=== PATIENT | male | born 1985 | race Caucasian/White ===

== ENCOUNTER 2018-06-09 17:18 | Emergency (ER) | payer BC, SELFPAY ==
[2018-06-09 17:21] VITALS: BP 156/108; PULSE 81; RESP 16; TEMP 36.7; O2SAT 98
--- NOTE | 2018-06-09 17:31 | ED.GENADUL ---
Disposition Clinical Impression: Left otitis externa Condition: Good Instructions: Otitis Externa (ED) Additional Instructions: We will ask our care management team to make you a follow-up appointment in otolaryngology clinic. Please take Ciprodex twice daily in the left ear. Take antibiotics as prescribed. Return for worsening discomfort or any other acute concerns. May use Tylenol and/or ibuprofen as needed for pain Prescriptions: Amoxicillin/Potassium Clav [Augmentin 875-125 Tablet] 1 each PO BID 10 Days #20 tablet Ciprofloxacin HCl/Dexameth [Ciprodex Otic Suspension] 7.5 ml OT BID 10 Days #1 drops.susp Medical Decision Making - Medical Decision Making 32-year-old male with 3+ weeks of left ear pain refractive to current course of Ciprodex. He does state he is taking it once daily. He is not diabetic and has no chronic medical issues per On exam it is most consistent with left otitis externa, cannot exclude otitis media. We will have him to continue Ciprodex twice daily and add Augmentin by mouth. We will ask care management to arrange for an outpatient follow-up in ENT clinic approximately 7-10 days from now for chronic left otitis externa History of Present Illness - General Chief complaint: EarProblem Stated complaint: EAR INFECTION Time Seen by Provider: 06/09/18 17:24 Source: patient, RN notes reviewed Mode of arrival: ambulatory Limitations: no limitations - History of Present Illness Initial comments: Ear pain: 32-year-old male states he has had left ear pain since mid April. He was seen in the emergency department on May 14 and provided with Ciprodex. He has since been seen in primary care clinic for which he has been taking neomycin drops. He states he now has persistent 7-10 days of left achy constant ear pain that is nonradiating. No exacerbating or ameliorating factors. He has not had a fever, sore throat, loose or damaged teeth. No injury. No change to hearing. - Related Data PARoxetine [Paxil] 10 mg PO DAILY 03/23/13 Amoxicillin/Potassium Clav [Augmentin 875-125 Tablet] 1 each PO BID 10 Days #20 tablet 06/09/18 Ciprofloxacin HCl/Dexameth [Ciprodex Otic Suspension] 7.5 ml OT BID 10 Days #1 drops.susp 06/09/18 Allergies Allergy/AdvReac Type Severity Reaction Status Date / Time No Known Allergies Allergy Unverified 06/09/18 17:25 Review of Systems Other: For systems reviewed, otherwise negative Past Medical History - Past Medical History Medical history: hypertension Surgical history: no surgical history General Exam - General Limitations: no limitations General appearance: alert, in no apparent distress - Head Head exam: Present: atraumatic, normocephalic - Eye Eye exam: Present: PERRL - ENT ENT exam: Present: other (Right tympanic membrane unremarkable. The left external ear canal is narrowed cobblestoned with white exudate. Cannot appreciate the tympanic membrane.) - Neck Neck exam: Present: normal inspection, full ROM. Absent: meningismus - Respiratory Respiratory exam: Absent: respiratory distress - Neurological Exam Neurological exam: Present: alert, oriented X3 - Psychiatric Psychiatric exam: Present: normal affect, normal mood - Skin Skin exam: Present: warm, dry, intact Course Vital Signs - 24 hr 06/09/18 17:21 Temperature 36.7 C Pulse 81 Respiratory 16 Rate Blood Pressure 156/108 Pulse Oximetry 98
[2018-06-09 17:50] VITALS: TEMP 36.7
--- NOTE | 2018-06-10 09:03 | CMPROGNOTE_ITS ---
Care Management Progress Note 06/10-Dr. Kramer requested assistance with PCP (Willard) f/u in one week for left chronic swimmer's ear. Referral faxed to [facility].
== END 2018-06-09 17:52 ==
PROVIDERS: Emergency Provider Emergency Medicine; PCP Nurse Practitioner
DX: H60.392 Other infective otitis externa, left ear (principal); I10 Essential (primary) hypertension
CPT/HCPCS: 99283

== ENCOUNTER 2019-05-01 11:13 | Emergency (ER) | payer BC, SELFPAY ==
[2019-05-01 11:19] VITALS: BP 167/95; PULSE 85; RESP 18; TEMP 37; O2SAT 98
--- NOTE | 2019-05-01 12:04 | W.ED.GENAD ---
Discharge Plan Disposition Patient Disposition: HOME Condition: Stable Discharge Details Chief Complaint: Abd Prob Clinical Impression: Anxiety, Abdominal pain Primary Care Provider: Isabel Lamar ED Provider: Pushpa Ryan Home Meds and New Rx's Prescriptions: Continued paroxetine HCl 20 MG tablet 10 mg PO DAILY RF: 0 Discharge Instructions Instructions: Abdominal Pain (ED), Anxiety (ED) Additional Instructions: Encourage hydration. Treat symptoms with Tylenol and ibuprofen, heat. Please continue with your fluoxetine as previously prescribed. Please follow-up with your primary care next week to discuss your persistent anxiety and abdominal pain. If you develop fever/chills, vomiting, inability to stay hydrated, increased pain or other new/worsening symptoms please seek care urgently once again Referrals: Isabel Lamar [Primary Care Provider] - Discharge Data Discharge Date/Time-TO BE ENTERED AT DEPARTURE: 05/01/19 12:25 Medical Decision Making Patient is a 33-year-old male, with history of anxiety, chief complaint of intermittent abdominal pain for the past 7 months. He reports that the pain comes on around times of stress or anxiety. He reports the pain is increased over the past week and has been more frequent. States that this does not decrease his appetite. Is noted that his bowel movements have been soft but still he is only having one per day. Denies any blood in stool. States that his dog is being put down today and with this his pain seems to have increased. On exam, he has a benign abdomen. No pain is elicited with exam. He is afebrile with stable vital signs. Patient does appear anxious. He does feel his anxiety driven. He cannot see any evidence of acute abdomen at this time is been intermittent for the past several months, only anxiety driven, I do not feel that this is an emergent issue may be followed up with the primary care. Patient does feel very reassured with this and feels that this in itself will help with this discomfort. We did discuss anxiolytic techniques further. He has been taking his paroxetine as prescribed and continue to do so. Encourage hydration. Advised that he may treat his symptoms and discussed [id number] home remedies to help with this. All his questions and concerns were addressed and he is in agreement this plan HPI General Mode of arrival: ambulatory. Date/Time Provider Initiated Documentation: 05/01/19 12:03. Limitations to Documentation: no limitations. Information obtained by: patient and RN notes reviewed. History of Present Illness 33 year old M presents to the emergency department with the chief complaint of abdominal pain, described as mild, Quality is described as aching (cramping), and is localized to the abdomen. Patient reports no radiation. Patient started experiencing this month(s) (7) and it has been intermittent. No relieving factors improve symptom(s), Other factors that worsen symptoms (stress) . Patient notes no other symptoms.. Patient did receive the following treatments prior to arrival, none Related Data Home Medications Medication Instructions Recorded Confirmed paroxetine HCl 10 mg PO DAILY 03/23/13 05/01/19 Allergies Allergy/AdvReac Type Severity Reaction Status Date / Time No Known Allergies Allergy Unverified 06/09/18 17:25 General Stated Complaint: Abd Prob SAULO: 3 Review of Systems Constitutional Reports as per HPI, Denies chills, Denies fatigue, Denies fever(s) and Denies headache(s) ENT Denies headache(s) Cardiovascular Reports as per HPI, Denies chest pain and Denies dyspnea Respiratory Reports as per HPI, Denies cough and Denies dyspnea Gastrointestinal Reports as per HPI Genitourinary Denies system reviewed and no additional complaints, except as docu (patient denies any change in urinary habits, no testicular pain) Musculoskeletal Reports as per HPI and Denies back pain Integumentary/Breasts Reports as per HPI and Denies rash Neurologic Reports as per HPI and Denies headache(s) Endocrine Denies fatigue [facility] Social History Smoking/Tobacco Use Status: Former Tobacco Use Alcohol Intake: current Alcohol Intake frequency: holidays/special occasions only Drug use: Daily Substance use type: marijuana Do you feel safe at home: Yes Do you feel safe in your relationship?: Yes Exam Const General: cooperative, healthy appearing, comfortable, no acute distress and well developed Nutritional Appearance: average body habitus and well nourished Orientation: alert and awake HENWV Head: normal to inspection Mouth: moist mucous membranes Resp Effort & Inspection: normal respiratory effort, able to speak in complete sentences and no respiratory distress Auscultation: clear to auscultation bilaterally, no rales, no rhonchi and no wheezes Cardio Rate: regular rate Rhythm: regular rhythm Heart Sounds: S1 normal and S2 normal GI Inspection: normal to inspection, no edema and no visible herniation Palpation: soft, no hepatosplenomegaly, no aortic enlargement, not firm, no guarding, no pulsatile masses, not rigid and nontender Percussion: normal to percussion Auscultation: normal bowel sounds Back/Spine/Pelvis Back: no CVA tenderness Skin General skin exam: no rashes or lesions noted Trauma: no lacerations or abrasions Neuro General: alert and awake Cognition: normal cognition Speech: speech normal Gait: normal gait Psych Appearance: grossly normal and well kempt Mental Status: mental status grossly normal Speech and Movement: speech and movement normal Course Vital Signs Temperature 37 C 05/01/19 11:19 Pulse 85 05/01/19 11:19 Respiratory Rate 18 05/01/19 11:19 Blood Pressure 167/95 H 05/01/19 11:19 Pulse Oximetry 98 05/01/19 11:19 Temperature 37 C 05/01/19 11:19 Temperature Source Temporal Artery Scan 05/01/19 11:19 Pulse 85 05/01/19 11:19 Respiratory Rate 18 05/01/19 11:19 Respiratory Effort Non-Labored 05/01/19 11:19 Blood Pressure 167/95 H 05/01/19 11:19 Blood Pressure Position Sitting 05/01/19 11:19 Pulse Oximetry 98 05/01/19 11:19 Oxygen Delivery Method Room Air 05/01/19 11:19 Oxygen Flow Rate 0 05/01/19 11:19 Pain Level 3 05/01/19 11:19
--- NOTE | 2019-05-01 12:17 | ED.GENADUL_ITS ---
Discharge Plan Disposition Patient Disposition: HOME Condition: Stable Discharge Details Chief Complaint: Abd Prob Clinical Impression: Anxiety, Abdominal pain Primary Care Provider: Isabel Lamar ED Provider: Pushpa Ryan Home Meds and New Rx's Prescriptions: Continued paroxetine HCl 20 MG tablet 10 mg PO DAILY RF: 0 Discharge Instructions Instructions: Abdominal Pain (ED), Anxiety (ED) Additional Instructions: Encourage hydration. Treat symptoms with Tylenol and ibuprofen, heat. Please continue with your fluoxetine as previously prescribed. Please follow-up with your primary care next week to discuss your persistent anxiety and abdominal pain. If you develop fever/chills, vomiting, inability to stay hydrated, increased pain or other new/worsening symptoms please seek care urgently once again Referrals: Isabel Lamar [Primary Care Provider] - Discharge Data Discharge Date/Time-TO BE ENTERED AT DEPARTURE: 05/01/19 12:25 Medical Decision Making Patient is a 33-year-old male, with history of anxiety, chief complaint of intermittent abdominal pain for the past 7 months. He reports that the pain comes on around times of stress or anxiety. He reports the pain is increased over the past week and has been more frequent. States that this does not decrease his appetite. Is noted that his bowel movements have been soft but still he is only having one per day. Denies any blood in stool. States that his dog is being put down today and with this his pain seems to have increased. On exam, he has a benign abdomen. No pain is elicited with exam. He is afebrile with stable vital signs. Patient does appear anxious. He does feel his anxiety driven. He cannot see any evidence of acute abdomen at this time is been intermittent for the past several months, only anxiety driven, I do not feel that this is an emergent issue may be followed up with the primary care. P atient does feel very reassured with this and feels that this in itself will help with this discomfort. We did discuss anxiolytic techniques further. He has been taking his paroxetine as prescribed and continue to do so. Encourage hydration. Advised that he may treat his symptoms and discussed [id number] home remedies to help with this. All his questions and concerns were addressed and he is in agreement this plan HPI General Mode of arrival: ambulatory . Date/Time Provider Initiated Documentation: 05/01/19 12:03 . Limitations to Documentation: no limitations . Information obtained by: patient and RN notes reviewed . History of Present Illness 33 year old M presents to the emergency department with the chief complaint of abdominal pain, described as mild, Quality is described as aching (cramping), and is localized to the abdomen. Patient reports no radiation. Patient started experiencing this month(s) (7) and it has been intermittent. No relieving factors improve symptom(s), Other factors that worsen symptoms (stress) . Patient notes no other symptoms.. Patient did receive the following treatments prior to arrival, none Related Data Home Medications Medication Instructions Recorded Confirmed paroxetine HCl 10 mg PO DAILY 03/23/13 05/01/19 Allergies Allergy/AdvReac Type Severity Reaction Status Date / Time No Known Allergies Allergy Unverified 06/09/18 17:25 General Stated Complaint: Abd Prob SAULO: 3 Review of Systems Constitutional Reports as per HPI, Denies chills, Denies fatigue, Denies fever(s) and Denies headache(s) ENT Denies headache(s) Cardiovascular Reports as per HPI, Denies chest pain and Denies dyspnea Respiratory Reports as per HPI, Denies cough and Denies dyspnea Gastrointestinal Reports as per HPI Genitourinary Denies system reviewed and no additional complaints, except as docu (patient denies any change in urinary habits, no testicular pain) Musculoskeletal Reports as per HPI and Denies back pain Integumentary/Breasts Reports as per HPI and Denies rash Neurologic Reports as per HPI and Denies headache(s) Endocrine Denies fatigue [facility] Social History Smoking/Tobacco Use Status: Former Tobacco Use Alcohol Intake: current Alcohol Intake frequency: holidays/special occasions only Drug use: Daily Substance use type: marijuana Do you feel safe at home: Yes Do you feel safe in your relationship?: Yes Exam Const General: cooperative, healthy appearing, comfortable, no acute distress and well developed Nutritional Appearance: average body habitus and well nourished Orientation: alert and awake HENMT Head: normal to inspection Mouth: moist mucous membranes Resp Effort & Inspection: normal respiratory effort, able to speak in complete sentences and no respiratory distress Auscultation: clear to auscultation bilaterally, no rales, no rhonchi and no wheezes Cardio Rate: regular rate Rhythm: regular rhythm Heart Sounds: S1 normal and S2 normal GI Inspection: normal to inspection, no edema and no visible herniation Palpation: soft, no hepatosplenomegaly, no aortic enlargement, not firm, no guarding, no pulsatile masses, not rigid and nontender Percussion: normal to percussion Auscultation: normal bowel sounds Back/Spine/Pelvis Back: no CVA tenderness Skin General skin exam: no rashes or lesions noted Trauma: no lacerations or abrasions Neuro General: alert and awake Cognition: normal cognition Speech: speech normal Gait: normal gait Psych Appearance: grossly normal and well kempt Mental Status: mental status grossly normal Speech and Movement: speech and movement normal Course Vital Signs Temperature 37 C 05/01/19 11:19 Pulse 85 05/01/19 11:19 Respiratory Rate 18 05/01/19 11:19 Blood Pressure 167/95 H 05/01/19 11:19 Pulse Oximetry 98 05/01/19 11:19 Temperature 37 C 05/01/19 11:19 Temperature Source Temporal Artery Scan 05/01/19 11:19 Pulse 85 05/01/19 11:19 Respiratory Rate 18 05/01/19 11:19 Respiratory Effort Non-Labored 05/01/19 11:19 Blood Pressure 167/95 H 05/01/19 11:19 Blood Pressure Position Sitting 05/01/19 11:19 Pulse Oximetry 98 05/01/19 11:19 Oxygen Delivery Method Room Air 05/01/19 11:19 Oxygen Flow Rate 0 05/01/19 11:19 Pain Level 3 05/01/19 11:19
== END 2019-05-01 12:25 | disposition home or self-care (01) ==
PROVIDERS: Emergency Provider Physician Assistant; PCP Nurse Practitioner
DX: F41.9 Anxiety disorder, unspecified (principal); R10.9 Unspecified abdominal pain; I10 Essential (primary) hypertension
CPT/HCPCS: 99283

== ENCOUNTER 2020-10-30 15:22 | Emergency (ER) | payer BC, SELFPAY ==
[2020-10-30 15:25] VITALS: BP 170/84; PULSE 106; RESP 18; TEMP 36.6; O2SAT 99
--- NOTE | 2020-10-30 15:38 | ED.GENADUL_ITS ---
Discharge Plan Disposition Patient Disposition: HOME Condition: Improving Discharge Details Clinical Impression: Otitis externa of right ear Primary Care Provider: Isabel Lamar ED Provider: Riley Kramer Home Meds and New Rx's Prescriptions: Continued paroxetine HCl 20 MG tablet 10 mg PO DAILY RF: 0 Discharge Instructions Instructions: Otitis Externa (ED) Additional Instructions: Ciprodex drops twice daily to right ear for 1 week's time. May use Tylenol if needed for pain. Return to ER for increasing discomfort or any other acute concerns. Medical Decision Making 35-year-old male with a history of both cerumen impaction and otitis externa presents with 5 days of right ear pain. No change to hearing, no fever, no sore throat. He is well-appearing, interactive, on exam he has evidence of otitis externa. No evidence of otitis media. Will treat with Ciprodex drops 2 times per day for 1 week. He understands homecare and indications to seek reevaluation. HPI General Mode of arrival: ambulatory . Date/Time Provider Initiated Documentation: 10/30/20 15:22 . Limitations to Documentation: no limitations . Information obtained by: patient . History of Present Illness 35 year old M presents to the emergency department with the chief complaint of Right ear pain x5 days, described as moderate, Quality is described as dull and constant, and is localized to the head and right. Patient reports no radiation. Patient started experiencing this day(s) and it has been constant. No relieving factors improve symptom(s), No exacerbating factors reported . Patient notes denies fever/chills, headaches, malaise and nausea/vomiting. Patient did receive the following treatments prior to arrival, none Related Data Home Medications Medication Instructions Recorded Confirmed paroxetine HCl 10 mg PO DAILY 03/23/13 10/30/20 Allergies Allergy/AdvReac Type Severity Reaction Status Date / Time No Known Allergies Allergy Unverified 10/30/20 15:28 General Stated Complaint: EarProblem SAULO: 4 Review of Systems Narrative: 6 systems reviewed and otherwise negative [facility] Medical History Anxiety Bilateral carpal tunnel syndrome Elevated blood pressure reading Palpitations Social History Smoking/Tobacco Use Status: Former Tobacco Use Smoking risk assessment performed?: Yes Alcohol Intake: former Drug use: Daily Substance use type: marijuana Household members: family Housing: house Number of Children: 0 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 Pleasant, well groomed, interactive. HEAD: Normocephalic, atraumatic ENT: Mucous membranes moist, right external ear canal cobblestoned, erythematous with slight white exudate present, tympanic membrane visualized without erythema or distention. Left tympanic membrane unremarkable. External ear exam unremarkable EYES: PERRL, EOMI NECK: Full ROM, no TANYA, no menigismus CHEST/RESP: Nontender, clear to auscultation bilateral, no wheeze/rhonchi/rales CARDIOVASCULAR: RRR, no murmur, rub [place]. 2+ Rad pulse bilateral Neuro: Grossly normal neurologic exam, conversant, interactive. Psych: Speech fluent, thoughts congruent, affect normal Course Vital Signs Vital signs: Vital Signs Temperature 36.6 C 10/30/20 15:25 Pulse 106 H 10/30/20 15:25 Respiratory Rate 18 10/30/20 15:25 Blood Pressure 170/84 H 10/30/20 15:25 Pulse Oximetry 99 10/30/20 15:25 Temperature 36.6 C 10/30/20 15:25 Temperature Source Temporal Artery Scan 10/30/20 15:25 Pulse 106 H 10/30/20 15:25 Respiratory Rate 18 10/30/20 15:25 Respiratory Effort Non-Labored 10/30/20 15:28 Blood Pressure 170/84 H 10/30/20 15:25 Blood Pressure Position Sitting 10/30/20 15:25 Pulse Oximetry 99 10/30/20 15:25 Oxygen Delivery Method Room Air 10/30/20 15:25 Oxygen Flow Rate 0 10/30/20 15:25 Pain Level 4 10/30/20 15:25
[2020-10-30] MEDS: Ciprofloxacin/Dexameth. 7.5 ML BTL AD (15:46)
== END 2020-10-30 15:54 | disposition home or self-care (01) ==
PROVIDERS: Emergency Provider Emergency Medicine; PCP Nurse Practitioner
DX: H60.501 Unspecified acute noninfective otitis externa, right ear (principal)
CPT/HCPCS: 99283

== ENCOUNTER 2020-11-11 06:00 | Emergency (ER) | payer BC, SELFPAY ==
[2020-11-11 06:04] VITALS: BP 160/99; PULSE 70; RESP 16; TEMP 36.4; O2SAT 98
--- NOTE | 2020-11-11 06:05 | ED.GENADUL_ITS ---
Discharge Plan Disposition Patient Disposition: HOME Condition: Good Discharge Details Clinical Impression: Otitis externa of right ear Primary Care Provider: Isabel Lamar ED Provider: Brice Coyles and New Rx's Prescriptions: Continued paroxetine HCl 20 MG tablet 10 mg PO DAILY RF: 0 Discharge Instructions Instructions: Neomycin/Polymyxin B/Hydrocortisone (Into the ear), Otitis Externa (ED) Additional Instructions: Do not allow water to get into your right ear. Use the new Cortisporin eardrops for 7 to 10 days. Use 4 drops in the right ear 3-4 times per day. If no improvement noted by early next week should follow-up with ear nose and throat. Otherwise if seemingly better complete 10-day course. Follow-up with primary care to be sure everything is cleared up. Return to ED if increasing pain, swelling, fever or other concerns. Referrals: Isabel Lamar [Primary Care Provider] - Royer Webb MD [ [facility] STAFF PHYSICIAN] - Medical Decision Making Patient with continued right otitis externa despite Ciprodex. Does admit not being faithful regarding keeping water out of his ear. But did use the drops twice a day as cold for 1 week. Fair amount of green pus noted initially. This was irrigated out. I will switch to Cortisporin and have him use 3-4 times a day for 10 days with instructions to call and follow-up with ENT if no significant improvement after 3 to 4 days. Consider fungal infection but with it is green purulent material seems more likely to be bacterial. Otherwise follow-up with PCP at end of treatment for reevaluation. Return to ED if increasing pain, fever, swelling of the ear. HPI General Mode of arrival: ambulatory . Date/Time Provider Initiated Documentation: 11/11/20 06:03 . Limitations to Documentation: no limitations . Information obtained by: patient, RN notes reviewed and old records reviewed . HPI Narrative: Patient seen here earlier this month with right ear discomfort and drainage. Started on Ciprodex which he is used and thought there was improvement. However seems to be getting full with decreased hearing and drainage in. Minimal pain. No fever, facial swelling, headache, URI symptoms. Related Data Home Medications Medication Instructions Recorded Confirmed paroxetine HCl 10 mg PO DAILY 03/23/13 11/11/20 Allergies Allergy/AdvReac Type Severity Reaction Status Date / Time No Known Allergies Allergy Unverified 11/11/20 06:11 General SAULO: 4 Review of Systems Constitutional Constitutional: Denies fever(s) and Denies headache(s) ENT Ears, Nose, Mouth, and Throat: Reports abnormal hearing, Reports ear discharge, Denies otalgia, Denies facial pain, Denies headache(s), Denies nasal congestion, Denies sinus pain, Denies sinus pressure and Denies sore throat Cardiovascular Cardiovascular: Denies dyspnea Respiratory Respiratory: Denies cough and Denies dyspnea Neurologic Neurologic: Reports abnormal hearing and Denies headache(s) [facility] Medical History Anxiety Bilateral carpal tunnel syndrome Elevated blood pressure reading Palpitations Social History Smoking/Tobacco Use Status: Former Tobacco Use Smoking risk assessment performed?: Yes Alcohol Intake: former Drug use: Occasionally Substance use type: marijuana Household members: family Housing: house Number of Children: 0 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 HEENT: NC/AT. Normal facial exam. Bilateral external ears normal. Left canal and TM normal. Right canal full of green pus. After irrigation canal noted to be swollen and erythematous. TM visualized and normal with no erythema, perforation, or bulging. Eyes: Normal conjunctiva and sclera. Neck: Supple. Trachea midline. Lungs: Normal respiratory effort. Neuro: A+O x 3. Normal speech, mentation, gait. Cranial nerves II - XII grossly intact. No gross motor or sensory deficit. Skin: Warm and dry without rash.
[2020-11-11] MEDS: Cortisporin OTIC SUSP 10 ML BTL AD (06:40)
== END 2020-11-11 06:35 | disposition home or self-care (01) ==
PROVIDERS: Emergency Provider Emergency Medicine; PCP Nurse Practitioner
DX: H60.391 Other infective otitis externa, right ear (principal)
CPT/HCPCS: 99283

== ENCOUNTER 2021-04-28 17:39 | Emergency (ER) | payer BC, SELFPAY ==
[2021-04-28 17:44] VITALS: BP 169/97; PULSE 73; RESP 20; TEMP 36.4; O2SAT 98
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
[2021-04-28] MEDS: Ibuprofen 800 MG TAB PO (18:10)
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
[2021-04-28 19:20] VITALS: BP 145/85; PULSE 89
== END 2021-04-28 19:35 | disposition home or self-care (01) ==
PROVIDERS: Emergency Provider Registered Nurse Emergency; PCP Nurse Practitioner
DX: S42.142A Displaced fracture of glenoid cavity of scapula, left shoulder, initial encounter for closed fracture (principal); V86.55XA Driver of 3- or 4- wheeled all-terrain vehicle (ATV) injured in nontraffic accident, initial encounter
CPT/HCPCS: 99283; 73030

== ENCOUNTER 2021-05-10 13:12 | Outpatient (CLI) | payer BC, SELFPAY ==
--- NOTE | 2021-05-10 11:15 | DI.RAD_ITS ---
Exam(s) XR SHOULDER LT COMPLETE 2+V EXAM: XR SHOULDER LT COMPLETE 2+V CLINICAL HISTORY: left scapula fx f/u. TECHNIQUE: 2D digital imaging was performed. COMPARISON: CR,XR XR SHOULDER LT COMPLETE 2+V from 04/28/2021 FINDINGS: The appearance of the previously described glenoid fossa fractures unchanged. No additional fracture s evident. No further displacement. No dislocation. No abnormal soft tissue calcifications. IMPRESSION: DATA REPOSITORY: RADIATION DOSE DELIVERED:
== END 2021-05-10 13:13 | disposition home or self-care (01) ==
LOC: DIORS 13:12
PROVIDERS: PCP Nurse Practitioner; Referring Provider Nurse Practitioner; Visit Provider Student in an Organized Health Care Education/Training Program
DX: S42.145D Nondisplaced fracture of glenoid cavity of scapula, left shoulder, subsequent encounter for fracture with routine healing (principal); X58.XXXD Exposure to other specified factors, subsequent encounter
CPT/HCPCS: 73030

== ENCOUNTER 2021-06-07 15:13 | Outpatient (CLI) | payer BC, SELFPAY ==
--- NOTE | 2021-06-07 15:00 | DI.RAD_ITS ---
Exam(s) XR SHOULDER LT COMPLETE 2+V EXAM: XR SHOULDER LT COMPLETE 2+V CLINICAL HISTORY: left scapula f/u. TECHNIQUE: 2D digital imaging was performed. COMPARISON: CR,XR XR SHOULDER LT COMPLETE 2+V from 04/28/2021 CR,XR XR SHOULDER LT COMPLETE 2+V from 04/28/2021 CR XR SHOULDER LT COMPLETE 2+V from 05/10/2021 FINDINGS: BONES: There has been continued healing at the fracture of the glenoid. No acute fracture is present . No bony destructive lesion is seen. An os acromiale is noted. JOINTS: No dislocation present. SOFT TISSUE: Normal. IMPRESSION: Continued healing of glenoid fracture. DATA REPOSITORY: RADIATION DOSE DELIVERED:
== END 2021-06-07 15:14 | disposition home or self-care (01) ==
LOC: DIORS 15:14
PROVIDERS: PCP Nurse Practitioner; Visit Provider Student in an Organized Health Care Education/Training Program
DX: S42.145D Nondisplaced fracture of glenoid cavity of scapula, left shoulder, subsequent encounter for fracture with routine healing (principal); X58.XXXD Exposure to other specified factors, subsequent encounter
CPT/HCPCS: 73030

== ENCOUNTER 2021-09-03 00:52 | Emergency (ER) | payer BC, SELFPAY ==
[2021-09-03 01:02] VITALS: BP 196/118; PULSE 68; RESP 18; TEMP 36.1; O2SAT 97
[2021-09-03] MEDS: Erythromycin Ophth Oint 3.5 GM TUBE (01:08)
[2021-09-03] MEDS: Fluorescein STRIPS 100/BOX 1 MG (01:08)
[2021-09-03] MEDS: Tetracaine 0.5% 4 ML BTL (01:08)
[2021-09-03 01:09] VITALS: BP 160/95
--- NOTE | 2021-09-03 01:12 | W.ED.GENAD ---
Discharge Plan Disposition Patient Disposition: HOME Condition: Good Discharge Details Clinical Impression: Abrasion, corneal Primary Care Provider: Isabel Lamar ED Provider: Art Grubbs Home Meds and New Rx's Prescriptions: Continued paroxetine HCl 20 MG tablet 10 mg PO DAILY RF: 0 ibuprofen 800 mg tablet 800 mg PO Q8H PRN (Reason: pain) Qty: 20 RF: 0 Discharge Instructions Instructions: Corneal Abrasion (ED) Additional Instructions: At this time you have evidence of a mild corneal abrasion. This will get better on its own. Please apply the erythromycin ointment to your eye 2-3 times per day. Take Tylenol and Motrin as needed for pain. If your pain persist by Saturday, please follow-up closely with the fleet maintenance manager Dr. Mcghee. If you notice any worsening of your symptoms, or any new symptoms such as discharge from the eye, vision changes, vomiting, diarrhea, fever, chills, shortness of breath, chest pain, numbness, weakness, or fainting , please return immediately to the emergency department for reevaluation. Please follow up with your primary care provider as soon as possible for reassessment and reevaluation. As always, it was a pleasure participating in your medical care today. Referrals: [facility] [Outside] Medical Decision Making This is a pleasant 36-year-old male who presents for pain and irritation in his left eye. Patient states he is grinding with some metal yesterday, and then today noticed some mild irritation in his left eye at the medial superior aspect. He denies any visual changes otherwise. He denies numbness or tingling. She denies any trauma to the eye. No other complaints at this time. Pain is described as irritating like there is a foreign body sensation. It was not improved with Tylenol or Motrin. Physical exam demonstrates positive uptake of fluorescein in the left eye at the medial superior aspect. No foreign body, no rust ring. Eversion of both lids demonstrates no signs of retained foreign body. Patient completely relieved of pain with tetracaine. Visual acuity normal. Patient stable for discharge. Will give erythromycin ointment for home use. Tetanus is up-to-date. Recommended follow-up with Should be on an outpatient basis. I have extensively reviewed the treatment plan and discharge instructions with the patient. I have addressed all patient concerns at this time. The patient was made aware of what symptoms to monitor for that would warrant a return to the emergency department. Discussed the plan with the patient, they demonstrate verbal understanding and agreement with our assessment and plan at this time. The documentation in this chart was dictated using [employer] dictation software. Please excuse any dictation errors. HPI General Date/Time Provider Initiated Documentation: 09/03/21 00:53. HPI Narrative: This is a pleasant 36-year-old male who presents for pain and irritation in his left eye. Patient states he is grinding with some metal yesterday, and then today noticed some mild irritation in his left eye at the medial superior aspect. He denies any visual changes otherwise. He denies numbness or tingling. She denies any trauma to the eye. No other complaints at this time. Pain is described as irritating like there is a foreign body sensation. It was not improved with Tylenol or Motrin. Related Data Home Medications Medication Instructions Recorded Confirmed paroxetine HCl 10 mg PO DAILY 03/23/13 09/03/21 ibuprofen 800 mg PO Q8H PRN #20 tab 04/28/21 06/07/21 Previous Rx's Medication Instructions Recorded ibuprofen 800 mg PO Q8H PRN #20 tab 04/28/21 Allergies Allergy/AdvReac Type Severity Reaction Status Date / Time No Known Allergies Allergy Unverified 09/03/21 01:04 EDT General Stated Complaint: EyeProblem SAULO: 4 Review of Systems All systems reviewed & are unremarkable except as noted in HPI and below PFSH Medical History (Reviewed 09/03/21 @ 01:19 EDT by Art Grubbs DO) Anxiety Bilateral carpal tunnel syndrome Elevated blood pressure reading Palpitations Social History (Reviewed 09/03/21 @ 01:19 EDT by Art Grubbs DO) Smoking/Tobacco Use Status: Former Tobacco Use Smoking risk assessment performed?: Yes Alcohol Intake: former Drug use: Occasionally Substance use type: marijuana Household members: family Housing: house Number of Children: 0 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 Left eye: Eye: EOMI, PERRL, Peripheral vision intact. No nystagmus.No clinical signs of septal/orbital cellulitis, no redness around the eye, no proptosis. No hyphema, no signs of trauma around the eye, no periorbital emphysema. No sluggishness of the pupil. No ophthalmoplegia. No afferent pupillary defect. Fluorescein exam is positive for uptake in the medial superior aspect suggestive of a corneal abrasion, negative Lina sign. No rust ring, no foreign body is noted. Visual acuity as documented in chart. 3.ENT: Atraumatic external nose and ears. Moist MM. Neck: Symmetric, trachea midline, No thyromegaly. 4.CVS: +S1/S2, No murmurs or gallops. Peripheral pulses 2+ and equal in all extremities. Brisk capillary refill in all extremities. 5.RESP: Unlabored respiratory effort. Clear to auscultation bilaterally. No wheezes rales or rhonchi 6.GI: Soft, Nontender/Nondistended, No hepatosplenomegaly. No guarding or rebound. 7.MSK: Normocephalic/Atraumatic, Extremities w/o deformity or ttp No cyanosis or clubbing, Normal movement of all extremities 8.Skin: Warm, Dry. No rashes or lesions. 9.Neuro: manager wholesale II-XII grossly intact. Sensation grossly intact, no focal neurologic deficits. 10.Psych: (AAO) x3. Appropriate mood and affect Course Vital Signs Vital signs: Vital Signs Temperature 36.1 C L 09/03/21 01:02 EDT Pulse 68 09/03/21 01:02 EDT Respiratory Rate 18 09/03/21 01:02 EDT Blood Pressure 196/118 H 09/03/21 01:02 EDT Pulse Oximetry 97 09/03/21 01:02 EDT Temperature 36.1 C L 09/03/21 01:02 EDT Pulse 68 09/03/21 01:02 EDT Respiratory Rate 18 09/03/21 01:02 EDT Respiratory Effort Non-Labored 09/03/21 01:05 EDT Blood Pressure 160/95 H 09/03/21 01:09 EDT Pulse Oximetry 97 09/03/21 01:02 EDT Pain Level 5 09/03/21 01:02 EDT
== END 2021-09-03 01:15 | disposition home or self-care (01) ==
PROVIDERS: Emergency Provider Student in an Organized Health Care Education/Training Program; PCP Nurse Practitioner
DX: S05.02XA Injury of conjunctiva and corneal abrasion without foreign body, left eye, initial encounter (principal); W45.8XXA Other foreign body or object entering through skin, initial encounter
CPT/HCPCS: 99283

== ENCOUNTER 2021-12-10 07:58 | Emergency (ER) | payer BC, SELFPAY ==
[2021-12-10 08:02] VITALS: BP 174/103; PULSE 66; RESP 16; TEMP 37.1; O2SAT 97
--- NOTE | 2021-12-10 08:10 | ED.GENADUL_ITS ---
Discharge Plan Disposition Patient Disposition: HOME Condition: Stable Discharge Details Clinical Impression: Acute lumbosacral myofascial strain, Elevated blood pressure reading Primary Care Provider: Isabel Lamar ED Provider: Thomas Escamilla Home Meds and New Rx's Prescriptions: New diclofenac potassium 50 mg tablet 50 mg PO TID PRN (Reason: pain) Qty: 10 0RF Continued paroxetine HCl 20 MG tablet 10 mg PO DAILY 0RF Discontinued ibuprofen 800 mg tablet 800 mg PO Q8H PRN (Reason: pain) Qty: 20 0RF Discharge Instructions Additional Instructions: Please continue light duty for 1 additional week and slowly increase activity as tolerated. As discussed please continue to monitor your blood pressure and if continues to be elevated follow-up with your primary care provider for reassessment and discussion of possible need of medication. If you develop any fever chills, numbness tingling, dysfunction to your lower extremities, or change in bowel or bladder function return immediately to the emergency department. Due to the medication you received in the emergency department please do not take any further NSAIDs including aspirin, ibuprofen, Motrin, or Aleve for the next 8 hours. This also includes your prescription pain medication. Referrals: Isabel Lamar [Primary Care Provider] - (If not improving in the next 1 to 2 weeks) Discharge Data Discharge Date/Time-TO BE ENTERED AT DEPARTURE: 12/10/21 08:47 Medical Decision Making Patient here for back pain. LOW risk for ABDOMINAL AORTIC ANEURYSM, CAUDA EQUINA SYNDROME, EPIDURAL MASS LESION, SPINAL STENOSIS, OR HERNIATED DISK CAUSING SEVERE STENOSIS, thus I consider the discharge disposition reasonable. We have discussed the diagnosis and risks, and we agree with discharging home to follow- up with their primary doctor. We also discussed returning to the Emergency Department immediately if new or worsening symptoms occur. We have discussed the symptoms which are most concerning (e.g., saddle anesthesia, urinary or bowel incontinence or retention, changing or worsening pain) that necessitate immediate return. Patient also has elevated blood pressure which was discussed for patient to monitor and follow-up with primary care provider if not improving. Given no blunt trauma no fall and more of a repetitive lifting type injury I do not feel that radiological imaging is needed at this time. HPI General Mode of arrival: ambulatory . Date/Time Provider Initiated Documentation: 12/10/21 08:06 . Limitations to Documentation: no limitations . Information obtained by: patient . History of Present Illness 36 year old M presents to the emergency department with the chief complaint of back pain due to lifting, described as moderate and similar to prior episodes, with intensity rated at 8. Quality is described as aching and sharp, and is localized to the back. Patient reports no radiation. Patient started experiencing this week(s) (1) and it has been constant. improves with Rest improves symptom(s), Movement worsens symptoms . Patient notes no other symptoms.. Patient did receive the following treatments prior to arrival, NSAID Related Data Home Medications Medication Instructions Recorded Confirmed paroxetine HCl 20 mg tablet 10 mg PO DAILY 03/23/13 12/10/21 diclofenac potassium 50 mg tablet 50 mg PO TID PRN #10 tab 12/10/21 Previous Rx's Medication Instructions Recorded diclofenac potassium 50 mg tablet 50 mg PO TID PRN #10 tab 12/10/21 Allergies Allergy/AdvReac Type Severity Reaction Status Date / Time No Known Allergies Allergy Unverified 12/10/21 08:08 General Stated Complaint: Nk/Back Pain SAULO: 4 Review of Systems Constitutional Constitutional: Denies chills and Denies fever(s) Cardiovascular Cardiovascular: Denies chest pain and Denies dyspnea on exertion Respiratory Respiratory: Denies cough and Denies dyspnea on exertion Gastrointestinal Gastrointestinal: Denies abdominal pain, Denies change in bowel habits, Denies diarrhea, Denies nausea and Denies vomiting Genitourinary Genitourinary: Denies difficulty urinating and Denies urinary incontinence Musculoskeletal Musculoskeletal: Reports as per HPI and Reports back pain Neurologic Neurologic: Denies sensory deficit PFSH All Active Problems (Updated 12/10/21 @ 08:31 by Thomas Escamilla NP) Abrasion, corneal (Acute) Acute lumbosacral myofascial strain (Acute) Elevated blood pressure reading (Acute) Dislocation, shoulder closed (Acute 04/28/21) Closed fracture of glenoid cavity of left scapula (Acute 04/28/21) Medical History (Reviewed 09/03/21 @ 01:19 EDT by Art Grubbs DO) Anxiety Bilateral carpal tunnel syndrome Elevated blood pressure reading Palpitations Social History (Reviewed 09/03/21 @ 01:19 EDT by Art Grubbs DO) Smoking/Tobacco Use Status: Former Tobacco Use Smoking risk assessment performed?: Yes Alcohol Intake: former Drug use: Occasionally Substance use type: marijuana Household members: family Housing: house Number of Children: 0 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 Pets and animals: Yes Pets and animals: dog(s) Current gender identity: male What type of physical activity do you participate in: walking Seatbelt use: always Do you feel safe at home: Yes Do you feel safe in your relationship?: Yes Exam Const General: cooperative and no acute distress Orientation: alert, awake and oriented x3 Neck Neck: normal visual inspection, full ROM and no meningeal signs Resp Effort & Inspection: normal respiratory effort Auscultation: clear to auscultation bilaterally Cardio Rate: regular rate Rhythm: regular rhythm Heart Sounds: S1 normal and S2 normal Back/Spine/Pelvis Back: no CVA tenderness Cervical Spine: normal cervical lordosis, cervical ROM normal, No cervical muscular tenderness and No pain with cervical ROM Thoracic/Lumbar Spine: thoraco-lumbar ROM normal, pain with thoraco-lumbar ROM, paraspinal tenderness (Right lumbar sacral), No thoracic spinal tenderness, No lumbar spinal tenderness and No straight leg raise positive Pelvis: no pain with anterior-posterior compression, no pain with lateral compression, buttock tenderness on the right and sciatic notch tenderness on the right Neuro General: patient alert, patient awake and patient oriented x3 DTR's: Rt Patellar: 2+ and Lt Patellar: 2+ Course Vital Signs Vital signs: Vital Signs Temperature 37.1 C 12/10/21 08:02 Pulse 66 12/10/21 08:02 Respiratory Rate 16 12/10/21 08:02 Blood Pressure 174/103 H 12/10/21 08:02 Pulse Oximetry 97 12/10/21 08:02 Temperature 37.1 C 12/10/21 08:02 Temperature Source Temporal Artery Scan 12/10/21 08:02 Pulse 66 12/10/21 08:02 Respiratory Rate 16 12/10/21 08:02 Respiratory Effort Non-Labored 12/10/21 08:10 Blood Pressure 174/103 H 12/10/21 08:02 Blood Pressure Position Sitting 12/10/21 08:02 Pulse Oximetry 97 12/10/21 08:02 Oxygen Delivery Method Room Air 12/10/21 08:02 Oxygen Flow Rate 0 12/10/21 08:02 Pain Level 8 12/10/21 08:02
[2021-12-10] MEDS: Ketorolac 30 MG/ML VIAL IM (08:40)
[2021-12-10 08:47] VITALS: BP 172/106
== END 2021-12-10 08:47 | disposition home or self-care (01) ==
PROVIDERS: Emergency Provider Nurse Practitioner Family; PCP Nurse Practitioner
DX: S39.012A Strain of muscle, fascia and tendon of lower back, initial encounter (principal); X50.0XXA Overexertion from strenuous movement or load, initial encounter; R03.0 Elevated blood-pressure reading, without diagnosis of hypertension
CPT/HCPCS: 96372; 99284; 99283; J1885

== ENCOUNTER 2022-11-17 16:28 | Emergency (ER) | payer BC, SELFPAY ==
[2022-11-17 16:32] VITALS: BP 177/94; PULSE 82; RESP 18; TEMP 36.7; O2SAT 99
--- NOTE | 2022-11-17 17:06 | ED.GENADUL_ITS ---
Discharge Plan Disposition Patient Disposition: Home Condition: Improving Discharge Details Clinical Impression: Abrasion, corneal, Foreign body of eyelid, left Primary Care Provider: KIMBER LYNCH ED Provider: Efren Thompson Home Meds and New Rx's Prescriptions: Continued paroxetine HCl 20 MG tablet 10 mg PO DAILY Label Comments: patient states only taking it every other day. Discharge Instructions Instructions: Corneal Abrasion (ED) Additional Instructions: Foreign body removed without difficulty. There does however appear to be a smal l corneal abrasion. Avoid rubbing your eyes. Erythromycin as directed. Please watch for new or worsening symptoms and return to the ER for any concerns. If symptoms persist over the next 2-3 days I do recommend following up with your eye doctor. Medical Decision Making 37-year-old gentleman who does not wear contacts or glasses, reports this morning looking up at his ceiling and felt something fall into his eye does had irritation ever since. Denies any visual changes. Visual acuities normal, please see RN note. Tetracaine, 3 drops applied, patient now asymptomatic. Examination reveals a left upper lid foreign body which I was able to remove using a Q-tip. Fluorescein was then used and revealed a corneal abrasion. We will initiate erythromycin eye ointment therapy. Standard discharge and return precautions were provided. Patient understands, is agreeable to this plan, and has no additional questions or concerns upon discharge. This documentation was generated using [employer] dictation system, please disregard any oddities of phrase or misspellings. Medical Records Medical records reviewed: Yes I reviewed the patient's medical records. HPI General Mode of arrival: ambulatory . Date/Time Provider Initiated Documentation: 11/17/22 16:35 . Limitations to Documentation: no limitations . Information obtained by: patient . History of Present Illness 37 year old M presents to the emergency department with the chief complaint of L eye FB, described as mild, with intensity rated at 3. Quality is described as aching, and is localized to the eyes. Patient reports no radiation. Patient started experiencing this hour(s) (9) and it has been constant. No relieving factors improve symptom(s), Other factors that worsen symptoms (blinking) . Patient notes no other symptoms.. Patient did receive the following treatments prior to arrival, none Related Data Home Medications Medication Instructions Recorded Confirmed paroxetine HCl 20 mg tablet 10 mg PO DAILY 03/23/13 11/17/22 Allergies Allergy/AdvReac Type Severity Reaction Status Date / Time No Known Allergies Allergy Unverified 11/17/22 16:40 General Stated Complaint: EyeProblem SAULO: 3 Review of Systems Constitutional Constitutional: Denies fever(s), Denies headache(s) and Denies weakness Eyes Eyes: Denies change in vision and Reports irritation ENT Ears, Nose, Mouth, and Throat: Denies headache(s) Musculoskeletal Musculoskeletal: Denies numbness and Denies tingling Integumentary/Breasts Skin/Breast: Denies erythema Neurologic Neurologic: Denies headache(s), Denies numbness, Denies tingling and Denies weakness PFSH All Active Problems (Updated 11/17/22 @ 17:13 by TORRI Joaquin) Abrasion, corneal (Acute) Abrasion, corneal (Acute) Foreign body of eyelid, left (Acute) Dislocation, shoulder closed (Acute 04/28/21) Closed fracture of glenoid cavity of left scapula (Acute 04/28/21) Medical History Anxiety Bilateral carpal tunnel syndrome Elevated blood pressure reading Palpitations Social History Smoking/Tobacco Use Status: Former Tobacco Use Smoking risk assessment performed?: Yes Alcohol Intake: former Drug use: Occasionally Substance use type: marijuana Household members: family Housing: house Number of Children: 0 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 Pets and animals: Yes Pets and animals: dog(s) Current gender identity: male What type of physical activity do you participate in: walking Seatbelt use: always Do you feel safe at home: Yes Do you feel safe in your relationship?: Yes Exam Const General: cooperative, healthy appearing, comfortable and no acute distress Orientation: alert and awake HENMT Head: normal to inspection, normocephalic and atraumatic Face and sinus: normal facial exam Mouth: moist mucous membranes Eyes Alignment and Position: alignment normal Periorbital: periorbital findings normal Eyelids: eyelid abnormality left upper eyelid foreign body (flipped) Conjunctivae: conjunctivae normal Sclera: sclerae normal Cornea: corneas abnormal on the left fluorescein used and abrasion and fluorescein used Pupils: PERRL EOM: EOM intact bilaterally Direct ophthalmoscopy: normal light reflex Eyes/upper lids images: 1. Corneal abrasion Neck Neck: normal visual inspection, full ROM, no meningeal signs, trachea midline and supple Resp Effort & Inspection: normal respiratory effort and able to speak in complete sentences Skin General skin exam: no rashes or lesions noted Neuro General: patient alert, patient awake, moves all extremities and no focal motor deficits Sensory Exam: no sensory deficits noted Psych Appearance: grossly normal Mental Status: mental status grossly normal Course Vital Signs Vital signs: Vital Signs Temperature 36.7 C 11/17/22 16:32 Pulse 82 11/17/22 16:32 Respiratory Rate 18 11/17/22 16:32 Blood Pressure 177/94 H 11/17/22 16:32 Pulse Oximetry 99 11/17/22 16:32 Temperature 36.7 C 11/17/22 16:32 Temperature Source Temporal Artery Scan 11/17/22 16:32 Pulse 82 11/17/22 16:32 Respiratory Rate 18 11/17/22 16:32 Respiratory Effort 11/17/22 16:38 Blood Pressure 177/94 H 11/17/22 16:32 Blood Pressure Position Sitting 11/17/22 16:32 Pulse Oximetry 99 11/17/22 16:32 Oxygen Delivery Method Room Air 11/17/22 16:32 Oxygen Flow Rate 0 11/17/22 16:32 Pain Level 6 11/17/22 16:32 PAWSS Have you Been Recently Intoxicated or Drunk Within the Last 30 days?: No Have you Ever Experienced Previous Episodes of Alcohol Withdrawal?: No Have you ever Experienced Withdrawal Seizures?: No Have you ever Experienced Delirium Tremens(DT)s?: No Have you ever undergone Alcohol Rehabilitation Treatment (i.e, inpt ot outpatient treatment programs)?: No Have you ever Experienced Blackouts?: No Have you ever Combined Alcohol with other Downers within the last 90 days?: No Have you ever Combined Alcohol with any other Substance of Abuse during the last 90 days?: No Positive Blood Alcohol level on Presentation? [PCS.BAL]: No Evidence of Increased Autonomic Activity (i.e. HR>120, tremor, sweating, agitation, nausea)?: No Result: 0
[2022-11-17] MEDS: Erythromycin Ophth Oint 3.5 GM TUBE OU (17:12)
[2022-11-17] MEDS: Tetracaine 0.5% 4 ML BTL (17:12)
[2022-11-17] MEDS: Fluorescein STRIPS 100/BOX 1 MG (17:12)
== END 2022-11-17 17:19 | disposition home or self-care (01) ==
PROVIDERS: Emergency Provider Physician Assistant; PCP Nurse Practitioner Family
DX: T15.12XA Foreign body in conjunctival sac, left eye, initial encounter (principal); X58.XXXA Exposure to other specified factors, initial encounter
CPT/HCPCS: 99283; 99284

== ENCOUNTER 2022-12-01 16:02 | Emergency (ER) | payer BC, SELFPAY ==
[2022-12-01 16:07] VITALS: BP 172/84; PULSE 88; RESP 18; TEMP 36.9; O2SAT 99
--- NOTE | 2022-12-01 16:27 | ED.GENADUL_ITS ---
Discharge Plan Disposition Patient Disposition: Home Condition: Stable Discharge Details Clinical Impression: Anxiety Primary Care Provider: KIMBER LYNCH ED Provider: Anthony Curry Home Meds and New Rx's Prescriptions: New lorazepam 1 mg tablet 1 mg PO TID PRNQty: 10 0RF Continued paroxetine HCl 20 MG tablet 10 mg PO DAILY Label Comments: patient states only taking it every other day. lisinopril 10 mg tablet 10 mg PO DAILY Label Comments: TAKE 1 TABLET BY MOUTH EVERY DAY Discharge Instructions Instructions: Anxiety (ED) Additional Instructions: follow up with your primary care provider within 1 week if you feel more ill, have worsening symptoms or difficulty breathing return to the emergency department Medical Decision Making 37 yo male who has a history of anxiety and htn and started lisinopril a week ago comes in with complaints of feeling anxious, mind racing and general weakness. He also stopped taking his paroxetine a week ago and restarted it the past few days. HE denies fevers, chills, rashes, abdominal pain, vomiting, dyspnea. HE arrives stable speaking clearly in full sentences, does appear anxious, no si/hi. HE has normal posterior pharynx, no uvula or tongue swelling, clear lungs, normal gait. I do not feel this is a reaction to the lisinopril and is likely relatd to his underlying anxiety and possibly stopping his paroxetine. Will check cbc, cmp given subjective weakness and treat with a dose or ativan and reassess. pt feels significantly better and seems less anxious labs show no significant abnormalities. He is stable and feels well, will have him f/u with his pcp and provide small amount of lorazepam, return precautions given Differential Diagnosis Differential Diagnosis: anxiety, electrolyte abnormality HPI General Mode of arrival: ambulatory . Date/Time Provider Initiated Documentation: 12/01/22 16:12 . Limitations to Documentation: no limitations . Information obtained by: patient . History of Present Illness 37 year old M presents to the emergency department with the chief complaint of anxious, described as moderate, Patient started experiencing this week(s) (1) and it has been intermittent. No relieving factors improve symptom(s), No exacerbating factors reported . Patient did receive the following treatments prior to arrival, none Related Data Home Medications Medication Instructions Recorded Confirmed paroxetine HCl 20 mg tablet 10 mg PO DAILY 03/23/13 12/01/22 lisinopril 10 mg tablet 10 mg PO DAILY 12/01/22 12/01/22 lorazepam 1 mg tablet 1 mg PO TID PRN #10 tabs 12/01/22 Previous Rx's Medication Instructions Recorded lorazepam 1 mg tablet 1 mg PO TID PRN #10 tabs 12/01/22 Allergies Allergy/AdvReac Type Severity Reaction Status Date / Time No Known Allergies Allergy Unverified 11/17/22 16:40 General Stated Complaint: GenMedical SAULO: 3 Review of Systems All systems reviewed & are unremarkable except as noted in HPI and below Constitutional Constitutional: Denies chills, Denies fever(s) and Denies weakness Cardiovascular Cardiovascular: Denies chest pain and Denies dyspnea Respiratory Respiratory: Denies cough and Denies dyspnea Gastrointestinal Gastrointestinal: Denies abdominal pain, Denies nausea and Denies vomiting Musculoskeletal Musculoskeletal: Denies joint swelling Integumentary/Breasts Skin/Breast: Denies rash Neurologic Neurologic: Denies weakness Endocrine Endocrine: Denies cold intolerance PFSH All Active Problems (Updated 12/01/22 @ 17:46 by Anthony Curry MD) Abrasion, corneal (Acute) Abrasion, corneal (Acute) Foreign body of eyelid, left (Acute) Anxiety (Chronic) Dislocation, shoulder closed (Acute 04/28/21) Closed fracture of glenoid cavity of left scapula (Acute 04/28/21) Medical History Anxiety Bilateral carpal tunnel syndrome Elevated blood pressure reading Palpitations Social History Smoking/Tobacco Use Status: Former Tobacco Use Smoking risk assessment performed?: Yes Alcohol Intake: current Alcohol Intake frequency: holidays/special occasions only Drug use: Current Sobriety Substance use type: marijuana Household members: family Housing: house Number of Children: 0 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 Pets and animals: Yes Pets and animals: dog(s) Current gender identity: male What type of physical activity do you participate in: walking Seatbelt use: always Do you feel safe at home: Yes Do you feel safe in your relationship?: Yes Exam Const General: no acute distress and anxious Orientation: alert HENMT Head: normal to inspection Ears: external ears normal General nose exam: external nose normal Mouth: moist mucous membranes Eyes General: appearance normal, both eyes and all related structures Neck Neck: normal visual inspection Resp Effort & Inspection: normal respiratory effort and able to speak in complete sentences Auscultation: clear to auscultation bilaterally Cardio Jugular venous pressure: no JVD Rate: regular rate Heart Sounds: no murmurs GI Palpation: soft and nontender Skin General skin exam: no rashes or lesions noted Neuro General: patient alert and patient oriented x3 Extrem General: normal to inspection Psych Mental Status: mental status grossly normal Course Vital Signs Vital signs: Vital Signs Temperature 36.9 C 12/01/22 16:07 Pulse 88 12/01/22 16:07 Respiratory Rate 18 12/01/22 16:07 Blood Pressure 172/84 H 12/01/22 16:07 Pulse Oximetry 99 12/01/22 16:07 Temperature 36.9 C 12/01/22 16:07 Temperature Source Temporal Artery Scan 12/01/22 16:07 Pulse 88 12/01/22 16:07 Respiratory Rate 18 12/01/22 16:07 Respiratory Effort Non-Labored 12/01/22 16:14 Blood Pressure 172/84 H 12/01/22 16:07 Blood Pressure Position Sitting 12/01/22 16:07 Pulse Oximetry 99 12/01/22 16:07 Oxygen Delivery Method Room Air 12/01/22 16:07 Oxygen Flow Rate 0 12/01/22 16:07
[2022-12-01] MEDS: LORazepam 1 MG TAB PO (16:32)
[2022-12-01 16:48] LABS: Abs Immature Grans 0.04 10^3/uL (0.0-0.06); Absolute Basophil Count 0.05 10^3/uL (0.0-0.2); Absolute Eosinophil Count 0.07 10^3/uL (0.0-0.7); Absolute Lymphocyte Count 1.93 10^3/uL (1.2-3.4); Absolute Monocyte Count 0.95 10^3/uL (0.1-0.8); Absolute Neutrophil Count 10.12 10^3/uL (1.2-6.7); Basophils % 0.4; Eosinophils % 0.5; HCT 44.4 % (40.0-50.0); HGB 15.5 g/dL (13.5-17.5); Immature Grans % 0.3; Lymphocytes % 14.7; MCH 30.9 pg (27.0-33.0); MCHC 34.9 % (32.0-36.0); MCV 88 fL (80-95); MPV 9.5 fL (8.0-11.0); Monocytes % 7.2; Neutrophils % 76.9; Platelet Count 261 10^3/uL (130-400); RBC 5.02 10^6/uL (4.36-5.78); RDW 11.7 % (11.8-14.1); RDW-SD 37.4 fL; WBC 13.16 10^3/uL (4.4-10.8)
[2022-12-01 17:07] LABS: ALT 20 U/L (16-63); AST 18 U/L (15-37); Albumin 4.5 g/dL (3.4-5.0); Alkaline Phosphatase 66 U/L (46-116); Anion Gap 10.1 mmol/L (3-11); BUN 18 mg/dL (7-18); Bilirubin, Total 0.8 mg/dL (0.2-1.0); CO2 23.9 mmol/L (21.0-32.0); CREATININE 1.1 mg/dL (0.70-1.30); Chloride 105 mmol/L (98-107); Estimated GFR 88.12 (mL/min/1.73m2); Glucose 126 mg/dL (74-106); Potassium 3.9 mmol/L (3.5-5.1); Sodium 139 mmol/L (136-145); Total Protein 7.6 g/dL (6.4-8.2)
== END 2022-12-01 17:55 | disposition home or self-care (01) ==
PROVIDERS: Emergency Provider Emergency Medicine; PCP Nurse Practitioner Family
DX: F41.9 Anxiety disorder, unspecified (principal); I10 Essential (primary) hypertension
CPT/HCPCS: 80053; 99283; 85025; 99284

== ENCOUNTER 2023-12-21 10:49 | Emergency (ER) | payer BC, SELFPAY ==
[2023-12-21 10:53] VITALS: BP 151/79; PULSE 94; RESP 20; TEMP 36.7; O2SAT 95
--- NOTE | 2023-12-21 11:46 | DI.RAD_ITS ---
Exam(s) XR KNEE RT 3V AP,LAT,SILKE EXAM: XR KNEE RT 3V AP,LAT,SILKE CLINICAL HISTORY: right knee. TECHNIQUE: 2D digital imaging was performed. COMPARISON: No exams were available for comparison FINDINGS: 3 views No evidence of fracture or prominent joint effusion. No degenerative joint space narrowing. Bone density normal. No osseous lesions. IMPRESSION: No acute osseous findings. DATA REPOSITORY: RADIATION DOSE DELIVERED:
--- NOTE | 2023-12-21 12:08 | DI.VRAD_ITS ---
PROCEDURE INFORMATION: Exam: XR Right Knee Exam date and time: 12/21/2023 11:34 AM Age: 38 years old Clinical indication: Pain; Knee; Right TECHNIQUE: Imaging protocol: Radiologic exam of the right knee. Views: 3 views. COMPARISON: No relevant prior studies available. FINDINGS: Bones/joints: No acute fracture, dislocation or bony destruction. Joint spaces are maintained. No suprapatellar effusion. Soft tissues: No acute abnormality. IMPRESSION: No acute osseous abnormality. Dictated and Authenticated by: Michael Gutierrez MD. Ordering:MARIO Mccrary MD
--- NOTE | 2023-12-21 14:59 | ED.GENADUL_ITS ---
Discharge Plan Disposition Patient Disposition: Home Discharge Details Clinical Impression: Injury of knee Primary Care Provider: KIMBER LYNCH ED Provider: Demetra Conley Home Meds and New Rx's Prescriptions: Continued paroxetine HCl 20 MG tablet 10 mg PO DAILY Patient Comments: patient states only taking it every other day. lisinopril 10 mg tablet 10 mg PO DAILY Patient Comments: TAKE 1 TABLET BY MOUTH EVERY DAY lorazepam 1 mg tablet 1 mg PO TID PRNQty: 10 0RF Discharge Instructions Instructions: Swollen Knee Joint (ED) Additional Instructions: Take Tylenol 650 every 6 hours as needed for pain You may apply Voltaren gel topically for discomfort Wear your splint for support Follow-up with orthopedics Return earlier should you develop worsening pain, swelling, or should he develop new or progressing symptoms Weightbearing as tolerated Referrals: Aashish Parish MD [ [facility] STAFF PHYSICIAN] - Discharge Data Discharge Date/Time-TO BE ENTERED AT DEPARTURE: 12/21/23 12:07 HPI General Date/Time Provider Initiated Documentation: 12/21/23 10:56 . HPI Narrative: This 38-year-old male presents with injury to the knee after being kicked by a cow. He states he was kicked over the medial aspect of his knee. He took ibuprofen prior to arrival. Denies any additional injuries. States his knee feels unstable when he tries to walk. Related Data Home Medications Medication Instructions Recorded Confirmed paroxetine HCl 20 mg tablet 10 mg PO DAILY 03/23/13 12/21/23 lisinopril 10 mg tablet 10 mg PO DAILY 12/01/22 12/21/23 lorazepam 1 mg tablet 1 mg PO TID PRN #10 tabs 12/01/22 12/21/23 Previous Rx's Medication Instructions Recorded lorazepam 1 mg tablet 1 mg PO TID PRN #10 tabs 12/01/22 Allergies Allergy/AdvReac Type Severity Reaction Status Date / Time No Known Allergies Allergy Unverified 12/21/23 10:54 General Stated Complaint: Orthopedic SAULO: 4 Course Vital Signs Vital signs: Vital Signs Temperature 36.7 C 12/21/23 10:53 Pulse 94 H 12/21/23 10:53 Respiratory Rate 20 12/21/23 10:53 Blood Pressure 151/79 H 12/21/23 10:53 Pulse Oximetry 95 12/21/23 10:53 Temperature 36.7 C 12/21/23 10:53 Temperature Source Skin 12/21/23 10:53 Pulse 94 H 12/21/23 10:53 Respiratory Rate 20 12/21/23 10:53 Respiratory Effort Normal, Non-Labored 12/21/23 10:55 Blood Pressure 151/79 H 12/21/23 10:53 Blood Pressure Position Sitting 12/21/23 10:53 Pulse Oximetry 95 12/21/23 10:53 Oxygen Delivery Method Room Air 12/21/23 10:53 Oxygen Flow Rate 0 12/21/23 10:53 Pain Level 2 12/21/23 10:53 Medical Decision Making This 38-year-old male presents with report of knee pain, immediately after being hit by a cow. States he fell over after the event happened Patient is neurovascularly intact, he has tenderness medially, no visible evidence of trauma aside from some mild swelling, no obvious joint instability Placed in a splint Follow-up with orthopedics with persistent symptoms Return precautions reviewed and patient expressed understanding Neurovascularly intact pre and postprocedure Quality:SDOH Health Related Social Needs: No Data to Display PFSH All Active Problems (Updated 12/21/23 @ 11:50 by TORRI Kurtz) Injury of knee (Acute) Abrasion, corneal (Acute) Dislocation, shoulder closed (Acute 04/28/21) Closed fracture of glenoid cavity of left scapula (Acute 04/28/21) Medical History Anxiety Bilateral carpal tunnel syndrome Elevated blood pressure reading Palpitations Social History Smoking/Tobacco Use Status: Former Tobacco Use Smoking risk assessment performed?: Yes Alcohol Intake: current Alcohol Intake frequency: holidays/special occasions only Drug use: Occasionally Substance use type: marijuana Household members: family Housing: house Number of Children: 0 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
== END 2023-12-21 12:07 | disposition home or self-care (01) ==
PROVIDERS: Emergency Provider Physician Assistant; PCP Nurse Practitioner Family
DX: M25.561 Pain in right knee (principal); S89.91XA Unspecified injury of right lower leg, initial encounter; W55.22XA Struck by cow, initial encounter
CPT/HCPCS: 29505; 73562; 99283

== ENCOUNTER 2025-08-23 13:59 | Outpatient (REF) | payer SELFPAY ==
[2025-08-23 21:45] LABS: ALT 38 U/L (16-63); AST 17 U/L (15-37); Albumin 4.1 g/dL (3.4-5.0); Alkaline Phosphatase 66 U/L (46-116); Anion Gap 7.0 mmol/L (3-11); BUN 15 mg/dL (7-18); Bilirubin, Total 0.6 mg/dL (0.2-1.0); CO2 29.0 mmol/L (21.0-32.0); Calcium 9.0 mg/dL (8.5-10.1); Calculated LDL 127 mg/dL (<100); Chloride 100 mmol/L (98-107); Cholesterol 208 mg/dL (<200); Estimated GFR 96.97 (mL/min/1.73m2); Glucose 77 mg/dL (74-106); HDL Cholesterol 45 mg/dL (>or=40); Potassium 4.3 mmol/L (3.5-5.1); Sodium 136 mmol/L (136-145); Total Protein 7.3 g/dL (6.4-8.2); Triglyceride 183 mg/dL (<150)
== END 2025-08-23 14:00 | disposition home or self-care (01) ==
LOC: NCHCN 13:59
PROVIDERS: PCP Nurse Practitioner Family; Visit Provider Nurse Practitioner Family
DX: Z00.00 Encounter for general adult medical examination without abnormal findings (principal)
CPT/HCPCS: 80053; 80061